=== PATIENT | male | born 1965 | race American Indian/Alaskan Native ===

== ENCOUNTER 2017-05-15 12:21 | Day surgery (SDC) | payer MEDICAID ==
[2017-05-15] MEDS ORDERED: NACL 0.9% 1000 ML 1,000 ML ONE (12:22)
[2017-05-15] MEDS ORDERED: NACL 0.9% 1000 ML 1,000 ML IV SCH (13:00)
[2017-05-15] MEDS ORDERED: WATER FOR IRRIG STERILE IR ONE (16:22)
--- NOTE | 2017-05-15 16:59 | Anesthesia Consultation ---
Anesthesia Consult and Med Hx Date of service: 05/15/17 - Airway Anesthetic Teeth Evaluation: Good ROM Head & Neck: Adequate Mental/Hyoid Distance: Adequate Mallampati Class: Class II - Pre-Operative Health Status ASA Pre-Surgery Classification: ASA1 Proposed Anesthetic Plan: General - Pulmonary Hx Smoking: No - Central Nervous System Hx Psychiatric Problems: No - Additional Comments Anesthesia Medical History Comments: NAC.
--- NOTE | 2017-05-15 16:59 | Anesthesia Day of Surgery ---
Anesthesia Day of Surgery - Day of Surgery Patient Examined: Yes Patient H&P Reviewed: Yes Patient is NPO: Yes
[2017-05-15] MEDS ORDERED: DIPRIVAN 10 MG/ML IV ONE ×2 (17:00)
--- NOTE | 2017-05-15 17:37 | Operative Report ---
Operative Report Operative Report: Date of procedure: 05/15/2017 Procedure: Colonoscopy Attending physician: Todd Anna MD Slitter Scorer Cut Off Operator: Todd Anna MD Indication: Patient is a 51-year-old male who presented history of recurrent rectal bleeding. A colonoscopy is done to evaluate patient so that treatment may be directed based the findings. Consent: Informed consent was obtained after advising the patient and family regarding nature of this procedure, its indications, potential benefits as well as possible complications including but not limited to bleeding perforation and adverse reaction to medication, infection as well as other cardiopulmonary complications. An informed written and verbal consent was then obtained after due opportunity was provided for questions and answers. Monitoring: Patient was monitored continuously with pulse oximetry and electrocardiographic recordings as well as blood pressure recordings. Vital signs remained stable throughout this procedure with no untoward events. Preoperative assessment: Patient was assessed immediately prior to this procedure for capacity to tolerate monitored anesthesia care and moderate sedation as well as general anesthesia. Patient's ASA classification is 2, Mallampati class is 2, Hyomental distance is 3. Instrument: Fujinon videocolonoscope Medications: Propofol, given intravenously in divided doses for details please potential records. Description of procedure: Patient was placed in the left lateral decubitus position after achieving sedation, a digital rectal examination was performed following which the colonoscope was introduced into the anal verge and advanced to the cecum which was identified by the cecal valve, the appendiceal orifice, as well as by the cecal strap and direct transillumination. The colonoscope was subsequently withdrawn with careful inspection of all mucosal surfaces. Patient tolerated this procedure well and was subsequently taken to the recovery room. The following findings were noted. Findings: The entirety of the colon was normal. On the retroflex view at the anal verge, patient had prominent large internal hemorrhoids that was very friable and bled easily on contact. Impression: Prominent internal hemorrhoids otherwise normal colonoscopy. Plan: High-fiber diet When necessary stool softeners Patient will benefit from hemorrhoidal band ligation in the near future.
--- NOTE | 2017-05-15 17:38 | Discharge Summary ---
Short Stay Discharge Plan Activity: advance as tolerated Weight Bearing Status: Weight Bear as Tolerated Diet: regular Follow up with: DELMY RUDOLPH MD [Primary Care Provider] - 7 Days
[2017-05-15 18:35] VITALS: BP 130/90
== END 2017-05-15 12:22 | disposition home or self-care (01) ==
LOC: GIO 12:21
PROVIDERS: ATTEND Internal Medicine Gastroenterology
DX: R10.32 Left lower quadrant pain (principal); K64.8 Other hemorrhoids; K59.00 Constipation, unspecified; R19.4 Change in bowel habit; M19.90 Unspecified osteoarthritis, unspecified site
CPT/HCPCS: 45378; J2704; J7030